=== PATIENT | male | born 1985 | race Hispanic/Latino ===

== ENCOUNTER 2017-11-24 08:58 | Emergency (ER) | payer OTHER ==
[~2017-11-24] VITALS: Ht 170.2 cm; Wt 127.0 kg
[2017-11-24 09:08] VITALS: BP 158/99
[2017-11-24] MEDS ORDERED: TORADOL ONE (09:11)
[2017-11-24] MEDS ORDERED: TORADOL IV STA (09:12)
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
--- NOTE | 2017-11-24 09:26 | NUR ---
WOUND WOUND ALSO NOTED TO INNER UPPER LIP.
--- NOTE | 2017-11-24 09:27 | NUR ---
CAT SCAN PATIENT TO CAT SCAN WITH JULEE FROM RADIOLOGY.
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
[2017-11-24 09:40] VITALS: BP 126/78
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
--- NOTE | 2017-11-24 09:51 | NUR ---
CAT SCAN PATIENT BACK FROM CAT SCAN.
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
--- NOTE | 2017-11-24 10:22 | NUR ---
status 18G IV DISCONTINUED TIP INTACT TO LEFT AC, NO SIGN OF INFILTRATION NOTED.
[2017-11-24 10:23] VITALS: BP 163/97
[2017-11-24 10:33] VITALS: BP 163/97
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
== END 2017-11-24 10:21 | disposition home or self-care (01) ==
LOC: ER 08:58 → EDBD 08:58 → ER 10:21
DX: S40.011A Contusion of right shoulder, initial encounter (principal); S00.531A Contusion of lip, initial encounter; M25.559 Pain in unspecified hip; E11.9 Type 2 diabetes mellitus without complications; V69.9XXA Occupant (driver) (passenger) of heavy transport vehicle injured in unspecified traffic accident, initial encounter; Y92.410 Unspecified street and highway as the place of occurrence of the external cause; Y93.89 Activity, other specified; Y99.8 Other external cause status
CPT/HCPCS: 70450; 70486; 73030; 73521; 96374; 99285; J1885